=== PATIENT | female | born 1975 ===

== ENCOUNTER 2024-10-21 15:36 | Emergency (ER) | payer MEDICAID, OTHER, SELFPAY ==
[2024-10-21] MEDS ORDERED: Lidocaine 4% Patch ONE (15:52)
[2024-10-21] MEDS ORDERED: Ibuprofen 200 MG TAB ONE (15:52)
== END 2024-10-21 16:52 | disposition home or self-care (01) ==
LOC: NAV ERS 15:36
DX: S29.011A Strain of muscle and tendon of front wall of thorax, initial encounter (principal); I10 Essential (primary) hypertension; E11.9 Type 2 diabetes mellitus without complications; E78.5 Hyperlipidemia, unspecified; Z75.8 Other problems related to medical facilities and other health care; Z79.84 Long term (current) use of oral hypoglycemic drugs; W01.0XXA Fall on same level from slipping, tripping and stumbling without subsequent striking against object, initial encounter; Y93.89 Activity, other specified
CPT/HCPCS: 71046